=== PATIENT | male | born 1950 | race African-American/Black ===

== ENCOUNTER 2020-04-15 11:21 | Inpatient (IN) ==
[2020-04-15] MEDS ORDERED: SODIUM CHLORIDE 0.9% 1,000 ML IV STA (12:17)
[2020-04-15 12:32] LABS: Basophils % 0.2 % (0.0-0.8); Hematocrit 46.2 VOL% (42.0-52.0); Hemoglobin 15.1 GM/DL (14.0-18.0); Immature Granulocytes % 0.2 %; Immature Granulocytes Absolute 0.01 #; Lymphocytes # 0.6 10*3/uL (1.4-4.0); Lymphocytes % 11.2 % (21.2-54.2); Mean Corpuscular HGB Conc 32.7 GM/DL (32-36); Mean Corpuscular Volume 89.4 FL (87-102); Mean Platelet Volume 12.5 FL (9.6-12.0); Monocytes % 3.7 % (1.7-12.7); Neutrophils % 84.7 % (38.7-73.9); Platelet Count 142 T/CUMM (130-400); Red Blood Count 5.17 MC/CUMM (3.8-5.5); White Blood Count 5.1 T/CUMM (4-12)
[2020-04-15 12:38] LABS: Albumin 2.9 G/DL (3.4-5.0); Bilirubin,Total 0.9 MG/DL (0.2-1.0); Calcium 8.3 MG/DL (8.5-10.1); Osmolality,Calculated 314.7 MOS/KG (273-304); Total Protein 6.7 G/DL (6.4-8.3)
[2020-04-15] MEDS ORDERED: PIPERACILLIN/TAZOBACTAM 3,375 MG in SODIUM CHLORIDE 0.9% 100 ML IV STA (12:48)
[2020-04-15 12:51] LABS: Apearance,Urine CLOUDY (Clear); Bacteria,Urine Occasional /HPF (Few); Bilirubin,Urine Negative (Negative); Blood, Urine Small mg/dL (Negative); Glucose,Urine (UA) 150 mg/dL (Negative); Ketones,Urine Negative (Negative); Mucus,Urine Occasional /LPF (Occasional); Nitrite,Urine Negative (Negative); Protein,Urine >=500 MG/DL; RBC,Urine 7 /HPF (0-4); Sperm,Urine Occasional /HPF (Negative); Squamous Epithelial Cell,Urine Occasional /HPF (0-10); Urine Color Amber (Yellow); Urine Specific Gravity 1.018 (1.001-1.035); Urine Urobilinogen < 2.0 EU/DL (0.2-1.0); WBC,Urine 3 /HPF (0-6)
[2020-04-15 13:09] LABS: Band Neutrophils 13 % (0-10); Lymphocytes 9 % (20-55); Nucleated Red Blood Cells 2 (0-5); Platelet Estimate Normal; Segmented Neutrophils 73 % (50-85); Total Cells Counted 100
[2020-04-15 13:19] LABS: Ferritin 1199.7 ng/ml (26-388)
[2020-04-15] MEDS ORDERED: ACETAMINOPHEN 325 MG TABLET PO PRN (13:32)
[2020-04-15] MEDS ORDERED: ALBUTEROL/IPRATROPIUM 3 ML NEB RESP TX PRN (13:32)
[2020-04-15] MEDS ORDERED: ONDANSETRON 4 MG/2 ML VIAL IV PRN (13:32)
[2020-04-15] MEDS ORDERED: POLYVINYL ALCOHOL 1.4% OPH SOLN 15 ML BOTTLE BOTH EYES PRN (13:34)
[2020-04-15] MEDS ORDERED: GLUCAGON 1 MG VIAL IM PRN (13:36)
[2020-04-15] MEDS ORDERED: SODIUM CHLORIDE 0.9% 3,150 ML IV ONE (13:55)
[2020-04-15] MEDS ORDERED: LACTATED RINGERS 1,000 ML IV SCH ×2 (14:00→17:00)
[2020-04-15] MEDS ORDERED: HEPARIN/NACL 0.9% 2 UNITS/ML 500 ML IV ONE (14:17)
[2020-04-15 15:12] LABS: ABG Base Excess -15.7 MMOL/L (-2.5-2.5); ABG HCO3 12.8 MMOL/L (20-26); ABG Oxygen Saturation 99.1 % (95-100); ABG TCO2 11.4 MMOL/L (23-27); Glucose Heart Surgery 292 MG/DL (74-106); Hematocrit Heart Surgery 39.1 PERCENT (42-52); Hemoglobin Heart Surgery 12.7 G/DL (14.0-18.0); Ionized Calcium Arterial 1.21 MMOL/L (1.21-1.46); PH Patient Temp Arterial 7.161; Patient Temperature 37 CELCIUS; Potassium Heart/CVR 4.9 MMOL/L (3.5-5.1); Sodium Heart/CVR 142 MMOL/L (135-145)
[2020-04-15 15:14] LABS: ABG PH 7.161 (7.35-7.45)
[2020-04-15] MEDS ORDERED: SODIUM BICARBONATE 50 MEQ/50 ML VIAL IV ONE ×2 (15:21→17:53)
[2020-04-15] MEDS ORDERED: ePHEDrine 50 MG/ML VIAL ONE (16:37)
[2020-04-15] MEDS ORDERED: PHENYLEPHRINE 10 MG/1 ML VIAL IV ONE (16:44)
[2020-04-15] MEDS ORDERED: NOREPINEPHRINE 16 MG in SODIUM CHLORIDE 0.9% 234 ML IV PRN (16:44)
[2020-04-15] MEDS ORDERED: SODIUM CHLORIDE 0.9% 100 ML IV ONE (16:44)
[2020-04-15] MEDS ORDERED: SODIUM CHLORIDE 0.9% 3,000 ML IV ONE (16:44)
[2020-04-15] MEDS ORDERED: ROCURONIUM 100 MG/10 ML VIAL IV ONE (16:44)
[2020-04-15] MEDS ORDERED: propofoL 200 MG/20 ML VIAL IV ONE (16:44)
[2020-04-15] MEDS ORDERED: MIDAZOLAM 2 MG/2 ML VIAL ONE (16:44)
[2020-04-15] MEDS ORDERED: SEVOFLURANE 1 UNIT/15 MINUTE INH ONE (16:44)
[2020-04-15] MEDS ORDERED: CALCIUM CHLORIDE 1,000 MG/10 ML VIAL IV ONE (16:44)
[2020-04-15] MEDS ORDERED: PHENYLEPHRINE 1 MG/10 ML SYRINGE IV ONE (16:44)
[2020-04-15] MEDS ORDERED: METOPROLOL TARTRATE 100 MG TABLET PO SCH (17:00)
[2020-04-15] MEDS ORDERED: levETIRAcetam 500 MG TABLET PO SCH (17:00)
[2020-04-15 17:10] LABS: ABG HCO3 12.7 MMOL/L (20-26); ABG Oxygen Saturation 99.3 % (95-100); ABG PCO2 29.3 MM HG (35-48); ABG PH 7.255 (7.35-7.45); ABG PO2 351.8 MM HG (80-95); ABG TCO2 13.6 MMOL/L (23-27)
[2020-04-15] MEDS: INSULIN LISPRO 100 UNIT/ML SUBCUT SCH (17:20)
[2020-04-15] MEDS: SODIUM CHLORIDE 0.9% 1,000 ML IV SCH (18:00)
[2020-04-15] MEDS ORDERED: LORazepam 2 MG/1 ML VIAL IV PRN (18:05)
[2020-04-15] MEDS: PANTOPRAZOLE 40 MG VIAL IV SCH (18:05)
[2020-04-15 18:41] LABS: Basophils % 0.4 % (0.0-0.8); Hematocrit 37.8 VOL% (42.0-52.0); Immature Granulocytes % 0.4 %; Immature Granulocytes Absolute 0.01 #; Lymphocytes # 0.2 10*3/uL (1.4-4.0); Lymphocytes % 9.7 % (21.2-54.2); Mean Corpuscular HGB Conc 31.7 GM/DL (32-36); Mean Corpuscular Volume 91.7 FL (87-102); Mean Platelet Volume 12.6 FL (9.6-12.0); Neutrophils % 87.5 % (38.7-73.9); Platelet Count 89 T/CUMM (130-400); Red Blood Count 4.12 MC/CUMM (3.8-5.5); Red Cell Distribution Width 13.1 % (9.3-17.3); White Blood Count 2.5 T/CUMM (4-12)
[2020-04-15 18:50] LABS: INR 1.3; PT Patient Result 13.3 SECS (9.8-11.9)
[2020-04-15 19:01] LABS: Albumin 1.8 G/DL (3.4-5.0); Bilirubin,Total 1.2 MG/DL (0.2-1.0); Calcium 7.4 MG/DL (8.5-10.1); Osmolality,Calculated 325.4 MOS/KG (273-304); Total Protein 4.8 G/DL (6.4-8.3)
[2020-04-15 19:05] LABS: Band Neutrophils 34 % (0-10); Lymphocytes 7 % (20-55); Metamyelocytes 8 %; Myelocytes 2 %; Platelet Estimate Decreased; Segmented Neutrophils 46 % (50-85); Total Cells Counted 100
[2020-04-15 19:33] LABS: Ferritin 6325.2 ng/ml (26-388)
[2020-04-15] MEDS ORDERED: SODIUM CHLORIDE 0.9% 2,000 ML IV ONE (22:25)
[2020-04-15] MEDS: PIPERACILLIN/TAZOBACTAM 3,375 MG in SODIUM CHLORIDE 0.9% 100 ML IV SCH (22:34)
[2020-04-16] MEDS: INSULIN LISPRO 100 UNIT/ML SUBCUT SCH ×4 (00:25→17:48)
[2020-04-16] MEDS: HYDROmorphone 2 MG/1 ML VIAL IV PRN ×3 (00:30→20:15)
[2020-04-16] MEDS: SODIUM CHLORIDE 0.9% 1,000 ML IV SCH ×4 (01:14→09:30)
[2020-04-16] MEDS ORDERED: SODIUM CHLORIDE 0.9% 1,000 ML IV ONE (02:26)
[2020-04-16 02:55] LABS: ABG Base Excess -8.6 MMOL/L (-2.5-2.5); ABG HCO3 17.6 MMOL/L (20-26); ABG Oxygen Saturation 99.4 % (95-100); ABG PCO2 35.1 MM HG (35-48); ABG PH 7.297 (7.35-7.45); ABG TCO2 15.5 MMOL/L (23-27)
[2020-04-16 03:00] LABS: Basophils % 0.3 % (0.0-0.8); Hematocrit 36.1 VOL% (42.0-52.0); Hemoglobin 11.5 GM/DL (14.0-18.0); Immature Granulocytes % 0.5 %; Immature Granulocytes Absolute 0.02 #; Lymphocytes # 0.4 10*3/uL (1.4-4.0); Lymphocytes % 10.4 % (21.2-54.2); Mean Corpuscular HGB Conc 31.9 GM/DL (32-36); Mean Corpuscular Volume 92.1 FL (87-102); Mean Platelet Volume 12.8 FL (9.6-12.0); Monocytes % 3.8 % (1.7-12.7); Platelet Count 82 T/CUMM (130-400); Red Blood Count 3.92 MC/CUMM (3.8-5.5); Red Cell Distribution Width 13.3 % (9.3-17.3)
[2020-04-16 03:13] LABS: Albumin 1.5 G/DL (3.4-5.0); Bilirubin,Total 0.9 MG/DL (0.2-1.0); Calcium 6.3 MG/DL (8.5-10.1); Osmolality,Calculated 323.3 MOS/KG (273-304); Total Protein 4.5 G/DL (6.4-8.3)
[2020-04-16 03:44] LABS: INR 1.3; PT Patient Result 14.1 SECS (9.8-11.9); Partial Thromboplastin Time 40.7 SECS (23.9-33.8)
[2020-04-16 03:56] LABS: Band Neutrophils 29 % (0-10); Lymphocytes 12 % (20-55); Metamyelocytes 9 %; Nucleated Red Blood Cells 1 (0-5); Segmented Neutrophils 46 % (50-85); Total Cells Counted 100
[2020-04-16 03:57] LABS: Platelet Estimate Decreased
[2020-04-16] MEDS: PANTOPRAZOLE 40 MG VIAL IV SCH ×2 (06:11→17:48)
[2020-04-16] MEDS ORDERED: MAGNESIUM SULF RIDER 4 GM in PREMIX 1 EACH IV PRN (06:58)
[2020-04-16] MEDS ORDERED: MAGNESIUM SULF RIDER 2 GM in PREMIX 1 EACH IV PRN (06:58)
[2020-04-16] MEDS: PIPERACILLIN/TAZOBACTAM 3,375 MG in SODIUM CHLORIDE 0.9% 100 ML IV SCH ×2 (08:35→21:35)
[2020-04-16] MEDS ORDERED: PANTOPRAZOLE 40 MG VIAL IV SCH (09:00)
[2020-04-16] MEDS ORDERED: amLODIPine 10 MG TABLET PO SCH (09:00)
[2020-04-16] MEDS ORDERED: ISOSORBIDE MONONITRATE 30 MG TABLET PO SCH (09:00)
[2020-04-16] MEDS ORDERED: PANTOPRAZOLE 40 MG TABLET PO SCH (09:00)
[2020-04-16] MEDS ORDERED: VANCOMYCIN INJ 1,500 MG in SODIUM CHLORIDE 0.9% 500 ML IV ONE (10:00)
[2020-04-16] MEDS: SODIUM BICARB INJ 50 MEQ in STERILE WATER INJ 1,000 ML IV SCH ×2 (13:15→22:47)
[2020-04-16] MEDS ORDERED: ACETAMINOPHEN 650 MG SUPP RECTAL PRN (16:44)
[2020-04-16] MEDS: DEXTROSE 10% 250 ML BAG IV PRN ×3 (17:24→21:30)
[2020-04-16 21:13] LABS: Calcium 5.8 MG/DL (8.5-10.1)
[2020-04-16] MEDS ORDERED: INSULIN REGULAR 100 UNIT/ML IV ONE (21:24)
[2020-04-16] MEDS ORDERED: SODIUM BICARBONATE 50 MEQ/50 ML VIAL IV ONE (21:24)
[2020-04-16] MEDS ORDERED: SODIUM BICARB INJ 150 MEQ in STERILE WATER INJ 850 ML IV SCH ×2 (21:30→22:30)
[2020-04-17 00:18] LABS: Basophils % 0.6 % (0.0-0.8); Hematocrit 32.3 VOL% (42.0-52.0); Hemoglobin 10.2 GM/DL (14.0-18.0); Immature Granulocytes % 1.5 %; Immature Granulocytes Absolute 0.08 #; Lymphocytes # 0.6 10*3/uL (1.4-4.0); Lymphocytes % 12.2 % (21.2-54.2); Mean Corpuscular HGB Conc 31.6 GM/DL (32-36); Mean Corpuscular Volume 93.1 FL (87-102); Mean Platelet Volume 13.3 FL (9.6-12.0); Neutrophils % 80.7 % (38.7-73.9); Platelet Count 67 T/CUMM (130-400); Red Blood Count 3.47 MC/CUMM (3.8-5.5); Red Cell Distribution Width 13.6 % (9.3-17.3); White Blood Count 5.2 T/CUMM (4-12)
[2020-04-17 00:32] LABS: Calcium 5.5 MG/DL (8.5-10.1)
[2020-04-17] MEDS: HYDROmorphone 2 MG/1 ML VIAL IV PRN ×2 (01:00→21:57)
[2020-04-17] MEDS ORDERED: SODIUM CHLORIDE 0.9% 1,000 ML IV ONE (01:33)
[2020-04-17 01:35] LABS: Band Neutrophils 14 % (0-10); Lymphocytes 13 % (20-55); Segmented Neutrophils 59 % (50-85); Total Cells Counted 100
[2020-04-17 01:36] LABS: Anisocytosis 1+; Platelet Estimate Decreased
[2020-04-17] MEDS: INSULIN LISPRO 100 UNIT/ML SUBCUT SCH ×4 (01:44→18:53)
[2020-04-17] MEDS: DEXTROSE 10% 250 ML BAG IV PRN (01:44)
[2020-04-17] MEDS: SODIUM BICARB INJ 150 MEQ in DEXTROSE 5% 850 ML IV SCH ×2 (02:38→14:36)
[2020-04-17 03:39] LABS: ABG Base Excess -4.1 MMOL/L (-2.5-2.5); ABG Oxygen Saturation 99.1 % (95-100); ABG PCO2 40.8 MM HG (35-48); ABG TCO2 19.5 MMOL/L (23-27)
[2020-04-17 04:33] LABS: Basophils % 0.4 % (0.0-0.8); Hematocrit 31.1 VOL% (42.0-52.0); Hemoglobin 9.5 GM/DL (14.0-18.0); Immature Granulocytes % 1.2 %; Immature Granulocytes Absolute 0.06 #; Lymphocytes # 0.7 10*3/uL (1.4-4.0); Lymphocytes % 13.7 % (21.2-54.2); Mean Corpuscular HGB Conc 30.5 GM/DL (32-36); Mean Corpuscular Volume 94.2 FL (87-102); Mean Platelet Volume 14.4 FL (9.6-12.0); Monocytes % 3.3 % (1.7-12.7); Neutrophils % 81.4 % (38.7-73.9); Red Cell Distribution Width 13.7 % (9.3-17.3); White Blood Count 5.1 T/CUMM (4-12)
[2020-04-17 04:46] LABS: Platelet Count 67 T/CUMM (130-400)
[2020-04-17 04:47] LABS: Bilirubin,Total 2.1 MG/DL (0.2-1.0); Osmolality,Calculated 314.1 MOS/KG (273-304); Total Protein 3.9 G/DL (6.4-8.3)
[2020-04-17 04:49] LABS: Calcium 5.1 MG/DL (8.5-10.1)
[2020-04-17] MEDS: PANTOPRAZOLE 40 MG VIAL IV SCH ×2 (05:52→18:08)
[2020-04-17 06:03] LABS: Band Neutrophils 13 % (0-10); Lymphocytes 16 % (20-55); Platelet Estimate Decreased; Segmented Neutrophils 62 % (50-85); Total Cells Counted 100
[2020-04-17] MEDS: PIPERACILLIN/TAZOBACTAM 3,375 MG in SODIUM CHLORIDE 0.9% 100 ML IV SCH ×2 (08:42→21:55)
[2020-04-17] MEDS ORDERED: PHENYLEPHRINE DRIP 20 MG/250 ML PREMIX IV ONE (09:54)
[2020-04-17] MEDS ORDERED: EPINEPHrine 1 MG/ML VIAL ONE (09:54)
[2020-04-17] MEDS ORDERED: SODIUM BICARBONATE 50 MEQ/50 ML VIAL IV ONE (09:54)
[2020-04-17] MEDS ORDERED: CALCIUM CHLORIDE 1,000 MG/10 ML VIAL IV ONE (09:54)
[2020-04-17] MEDS ORDERED: PHENYLEPHRINE 1 MG/10 ML SYRINGE IV ONE (09:55)
[2020-04-17] MEDS ORDERED: CALCIUM GLUCONATE 1,000 MG in SODIUM CHLORIDE 0.9% 100 ML IV ONE ×2 (10:00→17:52)
[2020-04-17] MEDS ORDERED: VASOPRESSIN 20 UNITS/ML VIAL ONE (10:08)
[2020-04-17 11:01] LABS: Hepatitis B Core IgM Quant 0.19 Index; Hepatitis B Surface Ag Quant < 0.10 Index; Hepatitis B Surface Ag Result Negative (Negative); Hepatitis C Virus Ab Quant 0.09 Index; Hepatitis C Virus Ab Result Negative (Negative)
[2020-04-17] MEDS ORDERED: fentaNYL 100 MCG/2 ML VIAL ONE (11:09)
[2020-04-17] MEDS ORDERED: ROCURONIUM 100 MG/10 ML VIAL IV ONE (11:09)
[2020-04-17] MEDS ORDERED: MIDAZOLAM 2 MG/2 ML VIAL ONE ×2 (11:53→12:15)
[2020-04-17] MEDS ORDERED: MICROFIBRILLAR COLLAGEN POWDER 1 GM CAN TOP ONE (11:59)
[2020-04-17] MEDS ORDERED: SEVOFLURANE 1 UNIT/15 MINUTE INH ONE (12:55)
[2020-04-17] MEDS ORDERED: VANCOMYCIN INJ 1,500 MG in SODIUM CHLORIDE 0.9% 500 ML IV PRN (13:41)
[2020-04-17 17:14] LABS: Albumin 1.1 G/DL (3.4-5.0); Bilirubin,Total 1.9 MG/DL (0.2-1.0); Osmolality,Calculated 314.4 MOS/KG (273-304); Total Protein 4.4 G/DL (6.4-8.3)
[2020-04-17 17:19] LABS: Calcium 5.3 MG/DL (8.5-10.1)
[2020-04-17 17:20] LABS: Basophils % 0.5 % (0.0-0.8); Hematocrit 33.2 VOL% (42.0-52.0); Hemoglobin 10.4 GM/DL (14.0-18.0); Immature Granulocytes % 0.7 %; Immature Granulocytes Absolute 0.03 #; Lymphocytes # 0.4 10*3/uL (1.4-4.0); Lymphocytes % 9.2 % (21.2-54.2); Mean Corpuscular HGB Conc 31.3 GM/DL (32-36); Mean Corpuscular Volume 93.5 FL (87-102); Mean Platelet Volume 13.9 FL (9.6-12.0); Monocytes % 4.8 % (1.7-12.7); NRBC # 0.02 10*3/uL; Neutrophils % 84.8 % (38.7-73.9); Platelet Count 60 T/CUMM (130-400); Red Blood Count 3.55 MC/CUMM (3.8-5.5); Red Cell Distribution Width 13.8 % (9.3-17.3); White Blood Count 4.4 T/CUMM (4-12)
[2020-04-17] MEDS: SODIUM BICARB INJ 100 MEQ in DEXTROSE 5% 900 ML IV SCH (18:23)
[2020-04-17 18:38] LABS: Band Neutrophils 4 % (0-10); Lymphocytes 10 % (20-55); Segmented Neutrophils 86 % (50-85); Total Cells Counted 100
[2020-04-17 18:39] LABS: Macrocytosis Slight; Polychromasia Few; Toxic Granulation 2+
[2020-04-17 18:40] LABS: Anisocytosis 2+; Burr Cells 2+; Hypochromasia 2+; Poikilocytosis 3+
[2020-04-17 18:41] LABS: Platelet Estimate Adequate; Schistocytes 1+
[2020-04-18] MEDS: INSULIN LISPRO 100 UNIT/ML SUBCUT SCH ×4 (00:26→17:50)
[2020-04-18 05:10] LABS: ABG Base Excess -3.5 MMOL/L (-2.5-2.5); ABG HCO3 21.5 MMOL/L (20-26); ABG Oxygen Saturation 98.4 % (95-100); ABG PCO2 37.3 MM HG (35-48); ABG PH 7.365 (7.35-7.45); ABG TCO2 18.4 MMOL/L (23-27)
[2020-04-18 05:29] LABS: Basophils % 0.5 % (0.0-0.8); Hematocrit 30.7 VOL% (42.0-52.0); Hemoglobin 9.7 GM/DL (14.0-18.0); Immature Granulocytes % 0.9 %; Immature Granulocytes Absolute 0.04 #; Lymphocytes # 0.3 10*3/uL (1.4-4.0); Lymphocytes % 7.6 % (21.2-54.2); Mean Corpuscular HGB Conc 31.6 GM/DL (32-36); Mean Platelet Volume 13.8 FL (9.6-12.0); Monocytes % 5.5 % (1.7-12.7); NRBC # 0.03 10*3/uL; Neutrophils % 85.5 % (38.7-73.9); Platelet Count 65 T/CUMM (130-400); Red Cell Distribution Width 13.6 % (9.3-17.3); White Blood Count 4.3 T/CUMM (4-12)
[2020-04-18 05:56] LABS: Bilirubin,Total 1.7 MG/DL (0.2-1.0); Osmolality,Calculated 321.4 MOS/KG (273-304); Total Protein 4.5 G/DL (6.4-8.3)
[2020-04-18] MEDS: PANTOPRAZOLE 40 MG VIAL IV SCH ×2 (06:01→17:46)
[2020-04-18 06:20] LABS: Calcium 5.3 MG/DL (8.5-10.1)
[2020-04-18] MEDS: PIPERACILLIN/TAZOBACTAM 3,375 MG in SODIUM CHLORIDE 0.9% 100 ML IV SCH ×2 (08:12→20:12)
[2020-04-18] MEDS: HYDROmorphone 2 MG/1 ML VIAL IV PRN (08:12)
[2020-04-18] MEDS ORDERED: propofoL 200 MG/20 ML VIAL IV ONE (08:40)
[2020-04-18] MEDS: SODIUM BICARB INJ 100 MEQ in DEXTROSE 5% 900 ML IV SCH (09:11)
[2020-04-18] MEDS ORDERED: CALCIUM GLUCONATE 1,000 MG in SODIUM CHLORIDE 0.9% 100 ML IV ONE (10:01)
[2020-04-18 11:13] LABS: Band Neutrophils 5 % (0-10); Lymphocytes 6 % (20-55); Metamyelocytes 1 %; Segmented Neutrophils 74 % (50-85); Total Cells Counted 100
[2020-04-18 11:14] LABS: Anisocytosis 2+; Platelet Estimate Decreased; Polychromasia Slight
[2020-04-18] MEDS ORDERED: VANCOMYCIN INJ 1,500 MG in SODIUM CHLORIDE 0.9% 500 ML IV ONE (12:00)
[2020-04-18 12:21] LABS: ABG Base Excess -1.9 MMOL/L (-2.5-2.5); ABG HCO3 22.8 MMOL/L (20-26); ABG Oxygen Saturation 98.9 % (95-100); ABG PH 7.419 (7.35-7.45)
[2020-04-18] MEDS ORDERED: VANCOMYCIN INJ 750 MG in SODIUM CHLORIDE 0.9% 250 ML IV PRN (13:00)
[2020-04-18] MEDS ORDERED: VANCOMYCIN INJ 750 MG in SODIUM CHLORIDE 0.9% 250 ML IV ONE (17:00)
[2020-04-18 17:15] LABS: Calcium 6.2 MG/DL (8.5-10.1); Osmolality,Calculated 295.1 MOS/KG (273-304)
[2020-04-18] MEDS: SODIUM BICARB INJ 50 MEQ in DEXTROSE 5% 950 ML IV SCH (17:46)
[2020-04-19] MEDS: INSULIN LISPRO 100 UNIT/ML SUBCUT SCH ×4 (00:43→17:38)
[2020-04-19] MEDS ORDERED: SODIUM CHLORIDE 0.9% 1,000 ML IV ONE (01:33)
[2020-04-19 04:37] LABS: ABG Base Excess 0.7 MMOL/L (-2.5-2.5); ABG Oxygen Saturation 98.9 % (95-100); ABG PCO2 36.9 MM HG (35-48); ABG PH 7.435 (7.35-7.45); ABG TCO2 23.3 MMOL/L (23-27)
[2020-04-19 04:47] LABS: Basophils % 0.2 % (0.0-0.8); Hematocrit 22.5 VOL% (42.0-52.0); Hemoglobin 7.4 GM/DL (14.0-18.0); Immature Granulocytes % 4.8 %; Immature Granulocytes Absolute 0.22 #; Lymphocytes # 0.4 10*3/uL (1.4-4.0); Lymphocytes % 8.1 % (21.2-54.2); Mean Corpuscular HGB Conc 32.9 GM/DL (32-36); Mean Corpuscular Volume 90.7 FL (87-102); Mean Platelet Volume 14.1 FL (9.6-12.0); Monocytes % 4.4 % (1.7-12.7); NRBC # 0.08 10*3/uL; Neutrophils % 82.5 % (38.7-73.9); Platelet Count 51 T/CUMM (130-400); Red Blood Count 2.48 MC/CUMM (3.8-5.5); Red Cell Distribution Width 13.9 % (9.3-17.3); White Blood Count 4.6 T/CUMM (4-12)
[2020-04-19 04:58] LABS: Albumin 0.9 G/DL (3.4-5.0); Bilirubin,Total 1.9 MG/DL (0.2-1.0); Osmolality,Calculated 304.8 MOS/KG (273-304); Total Protein 4.1 G/DL (6.4-8.3)
[2020-04-19] MEDS: PANTOPRAZOLE 40 MG VIAL IV SCH ×2 (05:14→17:37)
[2020-04-19 05:15] LABS: Calcium 5.6 MG/DL (8.5-10.1)
[2020-04-19] MEDS: SODIUM BICARB INJ 50 MEQ in DEXTROSE 5% 950 ML IV SCH (05:22)
[2020-04-19 06:30] LABS: Band Neutrophils 1 % (0-10); Lymphocytes 9 % (20-55); Nucleated Red Blood Cells 1 (0-5); Segmented Neutrophils 88 % (50-85)
[2020-04-19 06:31] LABS: Platelet Estimate Decreased; Total Cells Counted 100
[2020-04-19] MEDS ORDERED: METOPROLOL TARTRATE 5 MG/5 ML VIAL IV ONE (08:50)
[2020-04-19] MEDS: SODIUM CHLORIDE 0.9% 1,000 ML IV SCH ×2 (08:51→22:28)
[2020-04-19] MEDS: PIPERACILLIN/TAZOBACTAM 3,375 MG in SODIUM CHLORIDE 0.9% 100 ML IV SCH ×2 (08:56→19:59)
[2020-04-19] MEDS ORDERED: CALCIUM GLUCONATE 1,000 MG in SODIUM CHLORIDE 0.9% 100 ML IV ONE (09:00)
[2020-04-19] MEDS: HYDROmorphone 2 MG/1 ML VIAL IV PRN ×2 (09:10→13:51)
[2020-04-19] MEDS ORDERED: METOPROLOL TARTRATE 5 MG/5 ML VIAL IV SCH ×2 (09:30→12:00)
[2020-04-19] MEDS ORDERED: DILTIAZEM 50 MG/10 ML VIAL IV ONE (11:29)
[2020-04-19] MEDS ORDERED: dilTIAZem Drip 125 MG/125 ML PREMIX IV SCH (11:30)
[2020-04-19 14:06] LABS: Basophils % 0.2 % (0.0-0.8); Eosinophils % 0.2 % (0.00-10.9); Hematocrit 21.6 VOL% (42.0-52.0); Immature Granulocytes Absolute 0.22 #; Lymphocytes # 0.4 10*3/uL (1.4-4.0); Lymphocytes % 6.8 % (21.2-54.2); Mean Corpuscular HGB Conc 32.4 GM/DL (32-36); Mean Corpuscular Volume 92.7 FL (87-102); NRBC # 0.06 10*3/uL; Neutrophils % 84.8 % (38.7-73.9); Platelet Count 54 T/CUMM (130-400); Red Blood Count 2.33 MC/CUMM (3.8-5.5); Red Cell Distribution Width 14.1 % (9.3-17.3); White Blood Count 5.5 T/CUMM (4-12)
[2020-04-19] MEDS ORDERED: SODIUM CHLORIDE 0.9% 1,000 ML IV PRN (14:34)
[2020-04-19 15:31] LABS: Band Neutrophils 6 % (0-10); Lymphocytes 7 % (20-55); Platelet Estimate Decreased; Segmented Neutrophils 83 % (50-85); Total Cells Counted 100
[2020-04-19] MEDS: niCARdipine INJ 25 MG in SODIUM CHLORIDE 0.9% 240 ML IV PRN ×4 (15:36→23:08)
[2020-04-19] MEDS: METOPROLOL TARTRATE 5 MG/5 ML VIAL IV SCH (18:26)
[2020-04-20] MEDS: INSULIN LISPRO 100 UNIT/ML SUBCUT SCH ×4 (00:21→17:42)
[2020-04-20] MEDS: METOPROLOL TARTRATE 5 MG/5 ML VIAL IV SCH ×4 (00:21→17:41)
[2020-04-20] MEDS: SODIUM CHLORIDE 0.9% 1,000 ML IV SCH ×2 (00:25→17:25)
[2020-04-20] MEDS: niCARdipine INJ 25 MG in SODIUM CHLORIDE 0.9% 240 ML IV PRN ×6 (02:10→23:36)
[2020-04-20 05:33] LABS: Basophils % 0.1 % (0.0-0.8); Eosinophils % 0.4 % (0.00-10.9); Hematocrit 19.7 VOL% (42.0-52.0); Hemoglobin 6.5 GM/DL (14.0-18.0); Immature Granulocytes Absolute 0.34 #; Lymphocytes # 0.5 10*3/uL (1.4-4.0); Lymphocytes % 6.8 % (21.2-54.2); Mean Corpuscular Volume 93.4 FL (87-102); Mean Platelet Volume 13.5 FL (9.6-12.0); Monocytes % 3.2 % (1.7-12.7); NRBC # 0.06 10*3/uL; Neutrophils % 84.5 % (38.7-73.9); Platelet Count 53 T/CUMM (130-400); Red Blood Count 2.11 MC/CUMM (3.8-5.5); Red Cell Distribution Width 14.1 % (9.3-17.3); White Blood Count 6.8 T/CUMM (4-12)
[2020-04-20] MEDS: PANTOPRAZOLE 40 MG VIAL IV SCH (05:50)
[2020-04-20 05:53] LABS: Band Neutrophils 6 % (0-10); Lymphocytes 4 % (20-55); Myelocytes 1 %; Nucleated Red Blood Cells 1 (0-5); Segmented Neutrophils 87 % (50-85); Total Cells Counted 100
[2020-04-20 05:54] LABS: Hypochromasia 1+
[2020-04-20 05:55] LABS: Macrocytosis Slight; Platelet Estimate Decreased
[2020-04-20 05:59] LABS: Albumin 0.8 G/DL (3.4-5.0); Bilirubin,Total 1.5 MG/DL (0.2-1.0); Calcium 5.9 MG/DL (8.5-10.1); Osmolality,Calculated 303.2 MOS/KG (273-304); Total Protein 4.3 G/DL (6.4-8.3)
[2020-04-20] MEDS: PIPERACILLIN/TAZOBACTAM 3,375 MG in SODIUM CHLORIDE 0.9% 100 ML IV SCH (08:14)
[2020-04-20 08:26] LABS: ABG Base Excess -3.9 MMOL/L (-2.5-2.5); ABG HCO3 21.1 MMOL/L (20-26); ABG Oxygen Saturation 89.3 % (95-100); ABG PCO2 31.9 MM HG (35-48); ABG PH 7.411 (7.35-7.45); ABG TCO2 19.4 MMOL/L (23-27); Allen Test Positive; Pt O2 Delivery Device Ventilator
[2020-04-20] MEDS ORDERED: SODIUM CHLORIDE 0.9% 1,000 ML IV PRN ×2 (08:50→14:32)
[2020-04-20 13:49] LABS: ABG Base Excess -6.3 MMOL/L (-2.5-2.5); ABG HCO3 19.1 MMOL/L (20-26); ABG Oxygen Saturation 89.2 % (95-100); ABG PCO2 32.1 MM HG (35-48); ABG PH 7.367 (7.35-7.45); ABG TCO2 17.8 MMOL/L (23-27); Pt O2 Delivery Device Ventilator
[2020-04-20 16:02] LABS: ABG Base Excess -6.8 MMOL/L (-2.5-2.5); ABG HCO3 18.8 MMOL/L (20-26); ABG Oxygen Saturation 92.1 % (95-100); ABG PCO2 36.4 MM HG (35-48); ABG PH 7.319 (7.35-7.45); ABG PO2 75.3 MM HG (80-95); ABG TCO2 17.2 MMOL/L (23-27); Pt O2 Delivery Device Ventilator
[2020-04-20] MEDS: FAMOTIDINE 20 MG/2 ML VIAL IV SCH (17:40)
[2020-04-20] MEDS ORDERED: MEROPENEM 500 MG in SODIUM CHLORIDE 0.9% 100 ML IV SCH (18:00)
[2020-04-20 18:19] LABS: Basophils # 0.1 10*3/uL (0.0-0.2); Basophils % 0.4 % (0.0-0.8); Eosinophils % 0.1 % (0.00-10.9); Hematocrit 33.1 VOL% (42.0-52.0); Hemoglobin 10.9 GM/DL (14.0-18.0); Immature Granulocytes % 5.2 %; Immature Granulocytes Absolute 0.71 #; Lymphocytes # 0.6 10*3/uL (1.4-4.0); Lymphocytes % 4.3 % (21.2-54.2); Mean Corpuscular HGB Conc 32.9 GM/DL (32-36); Mean Corpuscular Volume 92.7 FL (87-102); Mean Platelet Volume 14.4 FL (9.6-12.0); Monocytes % 2.6 % (1.7-12.7); Neutrophils % 87.4 % (38.7-73.9); Platelet Count 60 T/CUMM (130-400); Red Blood Count 3.57 MC/CUMM (3.8-5.5); Red Cell Distribution Width 14.1 % (9.3-17.3); White Blood Count 13.8 T/CUMM (4-12)
[2020-04-20 18:26] LABS: PT Patient Result 11.2 SECS (9.8-11.9)
[2020-04-20 19:44] LABS: Band Neutrophils 17 % (0-10); Lymphocytes 3 % (20-55); Nucleated Red Blood Cells 1 (0-5); Platelet Estimate Decreased; Segmented Neutrophils 80 % (50-85); Tear Drop Cells 2+; Total Cells Counted 100
[2020-04-21] MEDS: INSULIN LISPRO 100 UNIT/ML SUBCUT SCH ×4 (01:15→18:35)
[2020-04-21] MEDS: niCARdipine INJ 25 MG in SODIUM CHLORIDE 0.9% 240 ML IV PRN ×7 (01:15→18:50)
[2020-04-21] MEDS: METOPROLOL TARTRATE 5 MG/5 ML VIAL IV SCH ×2 (01:16→06:19)
[2020-04-21 04:43] LABS: ABG Base Excess -6.2 MMOL/L (-2.5-2.5); ABG HCO3 19.3 MMOL/L (20-26); ABG Oxygen Saturation 95.6 % (95-100); ABG PCO2 34.4 MM HG (35-48); ABG PH 7.346 (7.35-7.45); ABG PO2 89.1 MM HG (80-95); ABG TCO2 17.3 MMOL/L (23-27)
[2020-04-21] MEDS: SODIUM CHLORIDE 0.9% 1,000 ML IV SCH (05:49)
[2020-04-21 05:51] LABS: Basophils % 0.2 % (0.0-0.8); Eosinophils % 0.1 % (0.00-10.9); Hematocrit 27.7 VOL% (42.0-52.0); Hemoglobin 9.8 GM/DL (14.0-18.0); Immature Granulocytes % 3.8 %; Immature Granulocytes Absolute 0.54 #; Lymphocytes # 0.9 10*3/uL (1.4-4.0); Lymphocytes % 6.1 % (21.2-54.2); Mean Corpuscular HGB Conc 35.4 GM/DL (32-36); Mean Corpuscular Volume 89.9 FL (87-102); Mean Platelet Volume 14.4 FL (9.6-12.0); Monocytes % 1.4 % (1.7-12.7); NRBC # 0.21 10*3/uL; Neutrophils % 88.4 % (38.7-73.9); Platelet Count 65 T/CUMM (130-400); Red Blood Count 3.08 MC/CUMM (3.8-5.5); Red Cell Distribution Width 14.6 % (9.3-17.3); White Blood Count 14.3 T/CUMM (4-12)
[2020-04-21 06:20] LABS: Albumin 0.9 G/DL (3.4-5.0); Bilirubin,Total 1.5 MG/DL (0.2-1.0); Calcium 6.2 MG/DL (8.5-10.1)
[2020-04-21] MEDS: HYDROmorphone 2 MG/1 ML VIAL IV PRN (06:36)
[2020-04-21 06:38] LABS: Osmolality,Calculated 300.1 MOS/KG (273-304); Total Protein 4.7 G/DL (6.4-8.3)
[2020-04-21 06:41] LABS: Band Neutrophils 14 % (0-10); Hypochromasia Slight; Lymphocytes 3 % (20-55); Metamyelocytes 4 %; Nucleated Red Blood Cells 7 (0-5); Polychromasia Slight; Segmented Neutrophils 79 % (50-85); Total Cells Counted 100
[2020-04-21 06:42] LABS: Macrocytosis Slight
[2020-04-21 06:43] LABS: Platelet Estimate Decreased; Smudge Cells Few
[2020-04-21] MEDS ORDERED: SODIUM BICARBONATE 50 MEQ/50 ML VIAL IV ONE (08:06)
[2020-04-21] MEDS ORDERED: SODIUM CHLORIDE 0.9% 1,000 ML IV SCH (08:30)
[2020-04-21] MEDS ORDERED: SODIUM BICARB INJ 100 MEQ in STERILE WATER INJ 400 ML IV ONE (09:00)
[2020-04-21] MEDS ORDERED: ceFAZolin 1,000 MG in SYRINGE 1 EACH IV SCH (09:00)
[2020-04-21] MEDS: metroNIDAZOLE INJ 500 MG in PREMIX 1 EACH IV SCH ×2 (10:31→21:37)
[2020-04-21] MEDS: FAMOTIDINE 20 MG/2 ML VIAL IV SCH (18:00)
[2020-04-21] MEDS ORDERED: METOPROLOL TARTRATE 5 MG/5 ML VIAL IV SCH (18:00)
[2020-04-21 19:03] VITALS: BP 171/52
[2020-04-21] MEDS ORDERED: niCARdipine INJ 50 MG in SODIUM CHLORIDE 0.9% 480 ML IV PRN (19:20)
[2020-04-22] MEDS: INSULIN LISPRO 100 UNIT/ML SUBCUT SCH (00:18)
[2020-04-22 03:00] LABS: ABG Base Excess -12.4 MMOL/L (-2.5-2.5); ABG HCO3 14.5 MMOL/L (20-26); ABG Oxygen Saturation 77.9 % (95-100); ABG PCO2 48.8 MM HG (35-48); ABG PO2 59.8 MM HG (80-95); ABG TCO2 15.7 MMOL/L (23-27)
[2020-04-22 03:02] LABS: ABG PH 7.141 (7.35-7.45)
[2020-04-22 03:14] LABS: Basophils # 0.1 10*3/uL (0.0-0.2); Basophils % 0.3 % (0.0-0.8); Eosinophils % 0.1 % (0.00-10.9); Hematocrit 29.4 VOL% (42.0-52.0); Hemoglobin 9.9 GM/DL (14.0-18.0); Immature Granulocytes % 4.1 %; Immature Granulocytes Absolute 0.91 #; Lymphocytes # 1.9 10*3/uL (1.4-4.0); Lymphocytes % 8.6 % (21.2-54.2); Mean Corpuscular HGB Conc 33.7 GM/DL (32-36); Mean Corpuscular Volume 96.4 FL (87-102); Mean Platelet Volume 13.6 FL (9.6-12.0); Monocytes % 1.8 % (1.7-12.7); NRBC # 0.32 10*3/uL; Neutrophils % 85.1 % (38.7-73.9); Platelet Count 88 T/CUMM (130-400); Red Blood Count 3.05 MC/CUMM (3.8-5.5); Red Cell Distribution Width 15.2 % (9.3-17.3); White Blood Count 22.3 T/CUMM (4-12)
[2020-04-22 03:44] LABS: Albumin 0.9 G/DL (3.4-5.0); Bilirubin,Total 1.7 MG/DL (0.2-1.0); Osmolality,Calculated 298.2 MOS/KG (273-304); Total Protein 4.8 G/DL (6.4-8.3)
[2020-04-22 03:46] LABS: Calcium 5.8 MG/DL (8.5-10.1)
[2020-04-22] MEDS ORDERED: SODIUM BICARBONATE 50 MEQ/50 ML VIAL IV ONE ×2 (03:51→03:55)
[2020-04-22] MEDS ORDERED: CALCIUM CHLORIDE 1,000 MG/10 ML SYRINGE IV ONE ×3 (03:51→04:40)
[2020-04-22] MEDS ORDERED: NOREPINEPHRINE 4 MG/4 ML VIAL IV ONE (03:52)
[2020-04-22] MEDS ORDERED: NOREPINEPHRINE 8 MG in SODIUM CHLORIDE 0.9% 242 ML IV PRN (03:56)
[2020-04-22] MEDS ORDERED: INSULIN REGULAR 100 UNIT/ML IV ONE (03:58)
[2020-04-22] MEDS ORDERED: DEXTROSE 50% 25 GM/50 ML VIAL IV ONE (03:58)
[2020-04-22] MEDS ORDERED: EPINEPHrine 1 MG/10 ML SYRINGE ONE (04:40)
[2020-04-22] MEDS ORDERED: DEXTROSE 50% 25 GM/50 ML SYRINGE IV ONE (04:40)
[2020-04-22] MEDS ORDERED: SODIUM BICARBONATE 50 MEQ/50 ML SYRINGE IV ONE (04:40)
[2020-04-22] MEDS ORDERED: EPINEPHrine 1 MG/ML VIAL ONE (04:40)
[2020-04-22 04:53] LABS: Band Neutrophils 11 % (0-10); Lymphocytes 4 % (20-55); Metamyelocytes 1 %; Myelocytes 1 %; Nucleated Red Blood Cells 5 (0-5); Segmented Neutrophils 81 % (50-85); Total Cells Counted 100
[2020-04-22 04:54] LABS: Hypochromasia Slight; Macrocytosis Slight
[2020-04-22 04:55] LABS: Platelet Estimate Decreased
== END 2020-04-22 04:31 | disposition expired | DRG 853 ==
LOC: N.ED 11:21 → N.EDINP 13:32 → N.CC 14:05
PROVIDERS: ADMIT Surgery; ATTEND Surgery